=== PATIENT | female | born 1990 | race Caucasian/White ===

== ENCOUNTER 2016-04-23 15:46 | Inpatient (IN) | payer BC ==
[2016-04-25] MEDS ORDERED: Cervidil 10 MG VAG SCH (01:00)
[2016-04-25] MEDS ORDERED: TYLENOL EXTRA STRENGTH 500 MG PO PRN (01:02)
[2016-04-25] MEDS ORDERED: XYLOCAINE 1% HCL 20 ML MDV IJ PRN (01:02)
[2016-04-25 01:08] LABS: Mean Cell Volume 85.4 fl (78-100); Mean Platelet Volume 10.6 fl (6-9.5); Platelet Count 186 K/mm3 (150-450); Red Blood Count 4.26 M/mm3 (4.1-5.4); Red Cell Distribution Width 19.1 % (11.5-14.0); White Blood Count 8.3 K/mm3 (4.0-10.5)
[2016-04-25 01:28] LABS: Mean Corpuscular Hemoglobin 26.7 pg (26-32)
[2016-04-25 02:24] LABS: Eosinophil 1 % (0.00-3.0); Platelet Estimate NORMAL (NORMAL); Total Cells Counted 100
[2016-04-25] MEDS ORDERED: Lactated Ringers 1,000 ML IV ONE ×2 (09:36→18:43)
[2016-04-25] MEDS: Lactated Ringers 1,000 ML IV SCH ×2 (09:37→20:24)
[2016-04-25] MEDS: CLINDAMYCIN-D5W 900 MG/50 ML*** 50 ML IV SCH ×2 (09:37→18:20)
[2016-04-25] MEDS ORDERED: PITOCIN 30 UNITS/ LR 500 ML 30 UNITS/500 ML IV.SOLN. IV SCH (12:00)
[2016-04-25] MEDS ORDERED: OB EPIDURAL NAROPIN/SUFENTANIL IN NACL EPIDURAL PRN (18:43)
[2016-04-25] MEDS ORDERED: Ephedrine Sulfate 50 MG/ML IV PRN (18:43)
[2016-04-26] MEDS: Lactated Ringers 1,000 ML IV SCH (01:33)
[2016-04-26] MEDS ORDERED: Lactated Ringers 1,000 ML IV ONE (04:11)
[2016-04-26] MEDS ORDERED: BICITRA 30 ML CUP PO SCH (04:15)
[2016-04-26] MEDS ORDERED: Pepcid 20 MG VIAL IV SCH (04:15)
[2016-04-26] MEDS ORDERED: Reglan 10 MG/2 ML IV SCH (04:15)
[2016-04-26] MEDS ORDERED: KEFZOL 1 GM ONE (04:51)
[2016-04-26 04:52] LABS: Mean Cell Volume 85.2 fl (78-100); Mean Platelet Volume 10.2 fl (6-9.5); Platelet Count 162 K/mm3 (150-450); Red Blood Count 3.93 M/mm3 (4.1-5.4); Red Cell Distribution Width 18.9 % (11.5-14.0); White Blood Count 10.7 K/mm3 (4.0-10.5)
[2016-04-26 04:57] LABS: Mean Corpuscular Hemoglobin 26.9 pg (26-32)
[2016-04-26 04:58] LABS: INR 1.03 (0.8-3.0); PROTIME 11.5 SECONDS (9.95-12.35)
[2016-04-26 05:01] LABS: PTT 26.7 SECONDS (25.3-37.0)
[2016-04-26] MEDS ORDERED: OFIRMEV 100 ML IV ONE (05:11)
[2016-04-26] MEDS ORDERED: Cleocin Phosphate IV 600 MG/4 ML ONE ×2 (05:11→05:12)
[2016-04-26] MEDS ORDERED: Zofran 4 MG/2 ML VIAL IV PRN (07:35)
[2016-04-26] MEDS ORDERED: HOLD NARCOTIC ANALGESICS AND SEDATIVES X24 HR MC PRN (07:35)
[2016-04-26] MEDS ORDERED: Nubain 10 MG/ML IV PRN (07:35)
[2016-04-26] MEDS ORDERED: Narcan 0.4 MG/ML IV PRN (07:35)
[2016-04-26] MEDS ORDERED: Sodium Chloride 0.9% 10 ML FLUSH Syringe IJ PRN (07:35)
[2016-04-26] MEDS ORDERED: BENADRYL 50 MG/ML IV PRN (07:35)
[2016-04-26] MEDS ORDERED: DEMEROL 50 MG IV PRN (07:35)
[2016-04-26] MEDS ORDERED: PERCOCET TABLET 5/325MG PO PRN (07:35)
[2016-04-26] MEDS ORDERED: CLARITIN 10 MG PO PRN (07:35)
[2016-04-26] MEDS ORDERED: MORPHINE SULFATE 2 MG INJ IV PRN (07:35)
[2016-04-26] MEDS: Dextrose 5%-Lr IV Solution 1000 ML 1,000 ML IV SCH ×2 (08:44→16:28)
[2016-04-26] MEDS: CLINDAMYCIN-D5W 900 MG/50 ML*** 50 ML IV SCH (10:33)
[2016-04-26] MEDS: PITOCIN 30 UNITS/ LR 500 ML 500 ML IV SCH (10:33)
--- NOTE | 2016-04-26 15:23 | OP ---
SURGERY DATE/TIME: 04/26/2016 0526 PREOPERATIVE DIAGNOSES: 1) Term intrauterine . 2) Cephalopelvic disproportion. POSTOPERATIVE DIAGNOSES: 1) Term intrauterine . 2) Cephalopelvic disproportion. 3) Delivered. PROCEDURE: Primary lower uterine segment transverse incision section. SURGEON: Dr. Billingsley. DIVERSIONAL THERAPIST: Dr. Lopez. ANESTHESIA: Epidural. HISTORY: The patient is a 26 year old white female who had underwent induction. She got to complete and pushed for two hours and was unable to deliver the baby. The patient was therefore taken for section delivery. The patient was appraised of the risks of the procedure including the risk of wound infection, possible bleeding requiring transfusion, and possible injury to any intra-abdominal organs. The patient verbalized her understanding and desired to have the procedure performed. DESCRIPTION OF PROCEDURE: The patient was prepped and draped in the supine position. After adequate regional anesthesia was confirmed, a Pfannenstiel incision was made and carried down sharply through the fascia which was then divided in horizontal fashion. The rectus muscles were then bluntly and sharply dissected away from the overlying fascia and bluntly retracted laterally. The peritoneal cavity was then entered. A bladder flap was developed. It was noted that the bladder was large and bulging. It was apparent that the Johnson catheter was not in place. However we were able to retract the bladder inferiorly out of the field of view with gentle traction. These were then scored in horizontal fashion entering the midline. The wound was then extended using bandage scissors. A white male infant was delivered through the abdominal wound. The cord was doubly clamped and divided between the clamps. The baby was handed off for further care. The placenta was then manually removed from the uterus. The uterus was delivered through the abdominal wound and wrapped in moist gauze. The wound edges were then reapproximated using 1-0 chromic suture in a running, interlocking fashion. The bladder flap was then repaired using 3-0 chromic suture in a running fashion. The cul-de-sac area was then swabbed clear of blood and amniotic fluid and the uterus was replaced in the abdominal cavity. Paracolic gutters were also swabbed clear of blood and amniotic fluid. The peritoneum was then repaired using 3-0 chromic suture in a running fashion. The fascia was repaired using 0 Vicryl suture in a running fashion. The skin edges were reapproximated using 4-0 Vicryl suture in a subcuticular fashion and reinforced with Steri-Strips. The sponge, needle and instrument count was reported as correct at the end of the procedure. The Johnson catheter was then checked and found to be just in the vaginal area. We replaced the Johnson catheter and afterwards got good kirsten-colored urine without any trace of blood after this. Estimated blood loss was 500 cc. The patient was taken back to the recovery room in good condition.
[2016-04-26] MEDS ORDERED: Dulcolax 10 MG SUPP PR PRN (16:56)
[2016-04-26] MEDS ORDERED: LANSINOH 40 GM TOP PRN (16:56)
[2016-04-26] MEDS ORDERED: Dermoplast Spray TP PRN (16:56)
[2016-04-26] MEDS ORDERED: TUCKS TP PRN (16:56)
[2016-04-26] MEDS ORDERED: CORTISONE 1% CREAM TP PRN (16:56)
[2016-04-26] MEDS ORDERED: Mylicon 80MG PO PRN (16:56)
[2016-04-26] MEDS ORDERED: Restoril 15 MG PO PRN (16:56)
[2016-04-26] MEDS ORDERED: Anucort-HC SUPPOSITORY PR PRN (16:56)
[2016-04-26] MEDS ORDERED: Ambien 10 MG PO PRN (16:56)
[2016-04-26] MEDS ORDERED: Pitocin 10 UNITS/ML IV ONE (23:00)
[2016-04-26] MEDS ORDERED: SUBLIMAZE 100 MCG/2 ML IV ONE (23:59)
[2016-04-26] MEDS ORDERED: NAROPIN IJ ONE (23:59)
[2016-04-26] MEDS ORDERED: Epinephrine Preservative Free 1 MG/ML IJ ONE (23:59)
[2016-04-26] MEDS ORDERED: Astramorph-Pf 5 MG/10 ML IJ ONE (23:59)
[2016-04-26] MEDS ORDERED: Decadron 4 MG INJ IV ONE (23:59)
[2016-04-27 05:35] LABS: Mean Corpuscular Hemoglobin 27.3 pg (26-32); Mean Platelet Volume 10.5 fl (6-9.5); Platelet Count 202 K/mm3 (150-450); Red Blood Count 3.22 M/mm3 (4.1-5.4); Red Cell Distribution Width 18.8 % (11.5-14.0); White Blood Count 11.5 K/mm3 (4.0-10.5)
[2016-04-27] MEDS: FERREX 150 PO SCH (09:55)
[2016-04-27] MEDS: Colace 100 MG PO SCH ×3 (09:56→21:15)
[2016-04-27] MEDS: Tylenol #3 Tablet PO PRN ×2 (09:56→19:59)
[2016-04-27] MEDS: Dextrose 5%-Lr IV Solution 1000 ML 1,000 ML IV SCH (13:28)
[2016-04-27] MEDS: MOTRIN 400 MG PO PRN ×2 (15:09→23:11)
[2016-04-27 20:09] VITALS: O2SAT 100
[2016-04-28] MEDS: Tylenol #3 Tablet PO PRN ×3 (00:13→10:59)
[2016-04-28] MEDS: MOTRIN 400 MG PO PRN (10:06)
[2016-04-28] MEDS: Colace 100 MG PO SCH (10:07)
[2016-04-28] MEDS: FERREX 150 PO SCH (10:08)
[2016-04-28 14:19] VITALS: BP 129/82; PULSE 96
== END 2016-04-28 | disposition home or self-care (01) | DRG 766 ==
LOC: OB 04-25 00:12 → OBSVTOIN 04-25 17:45
PROVIDERS: ADMIT Family Medicine; ATTEND Family Medicine
PROC: 10D00Z1 Extraction of Products of Conception, Low, Open Approach (ICD-10-PCS; principal; 2016-04-26)
DX: O33.9 Maternal care for disproportion, unspecified (principal); Z3A.39 39 weeks gestation of pregnancy; Z37.0 Single live birth
CPT/HCPCS: 01967; 01968; 36415; 64425; 80307; 85025; 85027; 85610; 85730; 86850; 86900; 86901; 86922; 87086; 94799; 99140; G0378; J0171; J0690; J1100; J1200; J2274; J2590; J2795; J3010; L0625